=== PATIENT | male | born 1980 | race Caucasian/White ===

== ENCOUNTER 2022-11-09 13:55 | Emergency (ER) | payer OTHER, MEDICARE, MEDICAID ==
[2022-11-09] MEDS ORDERED: Ketorolac Tromethamine 30 MG/ML VIAL ONE (15:30)
== END 2022-11-09 17:23 | disposition home or self-care (01) ==
LOC: CSHERS 13:55
DX: S92.352A Displaced fracture of fifth metatarsal bone, left foot, initial encounter for closed fracture (principal); I10 Essential (primary) hypertension; V49.50XA Passenger injured in collision with unspecified motor vehicles in traffic accident, initial encounter
CPT/HCPCS: 70450; 72125; 96372; J1885